=== PATIENT | male | born 1985 ===

== ENCOUNTER → 2021-11-30 | Outpatient (CLI) | payer SELFPAY ==
[2021-12-02 00:11] LABS: CHLAMYDIA TRACHOMATIS, NAA Negative (Negative)
== END | disposition home or self-care (01) ==
LOC: LAB SHORT 10:05
PROVIDERS: Physician Assistant
DX: Z11.3 Encounter for screening for infections with a predominantly sexual mode of transmission (principal); R30.0 Dysuria; R36.9 Urethral discharge, unspecified
CPT/HCPCS: 87086; 87491; 87591

== ENCOUNTER → 2021-12-02 | Outpatient (CLI) | payer SELFPAY ==
[2021-12-03 10:10] LABS: HBSAG SCREEN Negative (Negative); HEP A AB, IGM Negative (Negative); HEP B CORE AB, IGM Negative (Negative); HEP C VIRUS AB <0.1 (0.0-0.9); HIV AB/P24 AG SCREEN Non Reactive (Non Reactive)
== END ==
LOC: LAB SHORT 16:50
PROVIDERS: Physician Assistant
DX: Z11.3 Encounter for screening for infections with a predominantly sexual mode of transmission (principal)
CPT/HCPCS: 80074; 86592; 86694; 86695; 86696; 87389

== ENCOUNTER → 2021-12-10 | Outpatient (CLI) | payer SELFPAY ==
[2021-12-13 07:10] LABS: MYCOPLASMA GENITALIUM NAA Negative (Negative)
== END | disposition home or self-care (01) ==
LOC: LAB SHORT 10:15
PROVIDERS: Physician Assistant
DX: N34.2 Other urethritis (principal)
CPT/HCPCS: 87563

== ENCOUNTER → 2022-11-16 | Outpatient (CLI) | payer BC ==
[2022-11-18 04:08] LABS: CHLAMYDIA TRACHOMATIS, NAA Negative (Negative)
[2022-11-18 19:09] LABS: MYCOPLASMA GENITALIUM NAA Negative (Negative)
== END | disposition home or self-care (01) ==
LOC: LAB SHORT 09:00
PROVIDERS: Physician Assistant
DX: N34.1 Nonspecific urethritis (principal)
CPT/HCPCS: 87491; 87563; 87591

== ENCOUNTER → 2023-02-28 | Outpatient (CLI) | payer BC ==
[2023-03-01 15:07] LABS: HIV AB/P24 AG SCREEN Non Reactive (Non Reactive)
== END | disposition home or self-care (01) ==
LOC: LAB 08:58 → LAB SHORT 08:58
PROVIDERS: Nurse Practitioner
DX: R36.9 Urethral discharge, unspecified (principal); Z20.2 Contact with and (suspected) exposure to infections with a predominantly sexual mode of transmission
CPT/HCPCS: 36415; 86592